=== PATIENT | female | born 1985 | race Caucasian/White ===

== ENCOUNTER 2023-10-27 19:56 | Emergency (ER) | payer OTHER, SELFPAY ==
[2023-10-27 20:04] VITALS: BP 144/88
--- NOTE | 2023-10-27 22:04 | ED.GENMED ---
History of Present Illness
General
Chief Complaint: Psychiatric Problem
Source: patient and family (mother)
Exam Limitations: none
Time Seen by Provider: 10/27/23 20:38
Nursing documentation reviewed up to this point in time: agreed with
Travel History
Have you had any contact with someone who has COVID-19?: No
Do you have any symptoms of coronavirus? Fever > 100 degrees, chills, cough, shortness of breath, sore throat, loss of taste or smell, muscle aches, or headache?: No
History of Present Illness
History of Present Illness:
38-year-old female with past medical history of bipolar 1 with schizoaffective disorder presents to the emergency room with flights of ideas�appears to be acutely manic and having delusions. She arrived via EMS�Per EMS she called them stating that
she wanted to be seen for a 'clean bill of health' but was having racing thoughts/flight of ideas on the way to the hospital. Patient tells me 'I just came here to be assessed' but cannot specifically tell me what she wished to have assessed. She
says 'it is my dream to me and oncologist, meeting a neurosurgeon is also another one of my dreams.' She repeatedly refers to going to the bathroom�'I only recently learned that the toilet was used for pooping, I am used to using a poop cup.' When
I asked her why she decided come to the hospital she says 'my friends recommended that I come in to be true to myself.' She denies any specific pain or shortness of breath or any other issues on review of systems. She does not seem to be suicidal
although she is frequently jumping from topic to topic. She tells me that she lives with her mother.
I called her mother on the phone and spoke to her at length to obtain some collateral history. She says that patient has a long history of mental health issues. She was not aware that patient was in the emergency room�she says that she stepped out
on the porch for 10 minutes and when she returned the patient was gone. She says that patient has been having escalating mental health issues over the past few days. She says that the patient has not slept in 48 hours. She says that she is
continually in and out of the bathroom running the water and drawing a bath for herself. Mother was concerned that maybe she was abusing laxatives because she has done this in the past. Mother reports that patient has had fixation on her health
over this period of time�she believes that these issues are triggered by the anniversary of patient's brother dying 12 years ago in September and the anniversary of patient's father dying 4 years ago in October. Apparently patient's aunt also recently had
a diagnosis of terminal lung cancer which seems to have contributed to change in her mental health. Patient has previously been seen at [facility] seen [facility] and [facility]. She currently takes Latuda 20 mg daily
and this is her only medication and has ostensibly been compliant according to mother.
Past History
Past History
ED Past Medical History: Psychiatric (Anxiety, bipolar disorder, schizoaffective disorder)
ED Past Surgical History: None
Social History
Tobacco: Non-smoker
Alcohol: None
Drug: None
Personal: Single
Living: with family
Employment: Not employed
Family History
Family History: Unable to obtain
Review of Systems
Review of Systems
All Other Systems: ROS reviewed and negative except as documented in HPI and ROS
Constitutional: Denies fever
Respiratory: Denies trouble breathing
Cardiac: Denies chest pain
ABD/GI: Denies abdominal pain or nausea
: Denies flank pain
Musculoskeletal: Denies neck pain or back pain
Neurological: Denies dizzy or headache
Psychiatric: Reports anxiety; Denies suicidal
Phy Exam
Physical Exam
Physical Exam:
General: Awake, alert, oriented x3; pressured speech and flight of ideas, occasional expression of delusional ideas; very poor insight
Head: Normocephalic, atraumatic
Eyes: Conjunctiva normal, EOMI, pupils equal round reactive to light bilaterally
Throat: Airway intact, handling secretions
Neck: Trachea midline, supple without meningismus
Lungs: Clear to auscultation bilaterally, no wheezing, rales, rhonchi
Heart: Regular rate and rhythm, no murmurs, gallops, or rubs
Abd: Soft, non distended, nontender
Neuro: Cranial nerves grossly intact, speech fluid, no motor or sensory deficits
Skin: no rash
Extremities: No edema in extremities, equal pulses in all extremities
Scores
Heart Failure Risk
Heart Failure Risk Score: Not Applicable
Heart Score for Chest Pain Patients
STEMI patient?: Not applicable
Withdrawal Assessment of Alcohol
Withdrawal Assessment Completed?: Not applicable
Course
Orders/Labs/Results
Orders:
Orders
10/27/23 20:11
Crisis Consult Urgent
Reason for Consult: wants to speak with someone for eval
10/27/23 22:03
Test Result ONCE
10/27/23 22:10
Acetaminophen Urgent
Alcohol Urgent
COVID-19 Antigen Urgent
Source: Nasal Swab
Complete Blood Count/With Diff Urgent
Comprehensive Metabolic Panel Urgent
HCG, Serum Qualitative Screen Urgent
Magnesium Urgent
Phos [Phosphorus] Urgent
Salicylate Urgent
10/27/23 22:22
Drug Screen, Urine [Urine Drug Abuse Screen] Urgent
Date Specimen was Collected: 10/27/23
Time Specimen was Collected: 22:21
Abnormal Lab Results
10/27/23
22:10
RBC 4.12 L 10^6/uL
(4.20-5.40)
MCH 31.3 H pg
(27.0-31.0)
Absolute Neuts (auto) 6.7 H 10^3/uL
(1.4-6.5)
Sodium 134 L mmol/L
(135-145)
Glucose 102 H mg/dl
(70-99)
Salicylates < 1.0 L mg/dl
(2.0-20.0)
Acetaminophen < 10 L ug/ml
(10-30)
10/27/23 22:10
10/27/23 22:10
Vital Signs
Initial and Last Documented VS:
Initial Vital Signs
Temp Pulse Resp BP Pulse Ox
36.8 C 81 16 144/88 99
10/27/23 20:04 10/27/23 20:04 10/27/23 20:04 10/27/23 20:04 10/27/23 20:04
Last Documented Vital Signs
Temp Pulse Resp BP Pulse Ox
36.8 C 81 16 144/88 99
10/27/23 20:04 10/27/23 20:04 10/27/23 20:04 10/27/23 20:04 10/27/23 20:04
MDM/Problems Addressed
Differential Diagnosis Includes:
Latrice, psychosis, drug/alcohol intoxication
MDM/Problems Addressed:
38-year-old female presents to the emergency room for assessment�appears to be acutely manic. She is having flights of ideas and is very erratic. Mother says that this has been escalating over the past few days, patient has not been sleeping. She
has a history of these neuropsychiatric issues per mother. Her vital signs are normal and her exam is benign. She does not offer any specific complaints. Will check basic medical screening labs�there was a question of perhaps overuse of laxatives
will need to check electrolytes. Will send CBC, CMP, Tylenol and salicylate levels, UDS, alcohol level. Check hCG. Will discuss with crisis for assessment. At this point patient is exhibiting very poor judgment and insight and does not appear
capable of caring for herself�I did discuss this with the mother and she tends to agree patient would benefit from inpatient psychiatric treatment once medically cleared.
Labs reviewed: CBC and CMP unremarkable, Tylenol and salicylate levels negative, alcohol level negative, UDS clean. Exam unchanged. At this point patient cleared from a medical perspective for psychiatric treatment�crisis performed an assessment
plan to file [address] treatment[address] Will monitor pending telepsych assessment and inpatient placement.
Chronic conditions affecting care:
Bipolar disorder with schizoaffective disorder
*Pulse Oximetry
Patient hypoxic: no
*Critical Care Note
Total Time (30-74mins, 75-104mins- exclusive of procedures): Not Applicable
Data Reviewed
Source: patient, family (Mother) and ambulance crew
Patient Management
Discussion with other providers: Other (Discussed with crisis staff)
Escalation/DeEscalation of care consider admission/obs:
Inpatient psychiatric treatment
ED Attending Note
-
Portions of this chart may have been created with voice recognition software.� Occasional wrong word or��sound alike� substitutions may have occurred due to the inherent limitations of voice recognition software.
Discharge Plan
Departure
Patient Disposition: Psych Facility
Date of Disposition: 10/27/23
Time of Disposition: 23:04
Discharge Problem:
Latrice, Delusions
Prescriptions:
No Action
multivitamin with folic acid [Tab-A-Tayo] 1 TABLET tablet
1 tab PO DAILY
aripiprazole [Abilify] 20 MG tablet
20 mg PO DAILY
Patient Comments:
NONE X 2 DAYS
lurasidone [Latuda] 80 MG tablet
80 mg PO DAILY
vitamin A 10,000 UNIT capsule
25,000 unit PO DAILY
Interventions
Interventions:
*Risk Screen - Suicide Last Done: 10/27/23 20:04
*General Assessment Last Done: 10/27/23 20:04
*Neglect/Abuse Screening Last Done: 10/27/23 20:04
ED-Psychological Assessment Last Done: 10/27/23 22:23
Discharge Date and Time
Print Language: FILIPINO
[2023-10-27 22:26] LABS: % Basophils 0.7 % (0-2); % Eosinophils 0.7 % (0-6); % Immature Granulocytes 0.2 % (0-0.5); % Lymphocytes 27.1 % (20.5-51.1); % Monocytes 5.4 % (1.7-9.3); % Neutrophils 65.9 % (42.2-75.2); Absolute Basophils 0.1 10^3/uL (0-0.2); Absolute Eosinophils 0.1 10^3/uL (0-0.7); Absolute Lymphocytes 2.7 10^3/uL (1.2-3.4); Absolute Monocytes 0.5 10^3/uL (0.1-0.6); Absolute Neutrophils 6.7 10^3/uL (1.4-6.5); Hematocrit 37.9 % (37.0-47.0); Hemoglobin 12.9 g/dL (12.0-16.0); Mean Corpuscular Hgb 31.3 pg (27.0-31.0); Mean Platelet Volume 9.3 fL (7.4-10.4); Nucleated Red Blood Cells % 0 %; Platelet Count 326 10^3/uL (130-400); Red Blood Cell Count 4.12 10^6/uL (4.20-5.40); Red Cell Dist. Width 12.2 % (11.5-14.5); White Blood Cell Count 10.1 10^3/uL (4.8-10.8)
[2023-10-27 22:39] LABS: COVID-19 Antigen Negative (Negative)
[2023-10-27 22:41] LABS: HCG, Serum Qualitative Screen Negative
[2023-10-27 22:43] LABS: Amphetamines Negative (Negative); Barbiturates Negative (Negative); Benzodiazepines Negative (Negative); Buprenorphine Negative (Negative); Cocaine Negative (Negative); Methadone Negative (Negative); Methamphetamines Negative (Negative); Opiates Negative (Negative)
[2023-10-27 22:44] LABS: Marijuana Negative (Negative); Phencyclidine Negative (Negative); Tricyclic Antidepressants Negative (Negative)
[2023-10-27 22:44] LABS: ALT (SGPT) 25 U/L (0-35); AST (SGOT) 34 U/L (14-36); Acetaminophen < 10 ug/ml (10-30); Alkaline Phosphatase 42 U/L (38-126); Blood Urea Nitrogen 11 mg/dl (7-17); Calcium 9.9 mg/dl (8.4-10.2); Carbon Dioxide 25 mmol/L (22-30); Chloride 102 mmol/L (98-107); Glucose 102 mg/dl (70-99); Magnesium 2.1 mg/dl (1.6-2.3); Phosphorus 4.5 mg/dl (2.5-4.5); Potassium 3.6 mmol/L (3.5-5.1); Salicylate < 1.0 mg/dl (2.0-20.0); Sodium 134 mmol/L (135-145); Total Bilirubin 0.6 mg/dl (0.2-1.3); Total Protein 7.7 g/dl (6.3-8.2); eGFR > 60.00
[2023-10-27 22:46] LABS: Alcohol None Detected
--- NOTE | 2023-10-28 11:24 | ED.CRISIS ---
ED Crisis Note
ED Crisis Note
Subjective:
Patient on a 302 committal. Awaiting placement at 303 hearing.
Objective:
No acute medical complaints. Rambled speech. Poor sleep. No respiratory distress. Nonfocal.. Denies suicidal thoughts.
Assessment/Plan:
Awaiting 303 hearing. Consult for psychiatry.
--- NOTE | 2023-10-28 13:40 | CON.MD ---
Consultation - Medical
-
patient seen chart reviewed. patient is a 38 year old w hx of mood disorder /psychosis. she comes to [facility] and home of a 302 petition filed by [employer]. the 302 alleges bizarre behavior such as defecating in the bathtub. without my asking the patient
told me the following:' i have germs in me...and try to use the bathtub in my home....I'vee been going where i want...the bathtub ot standing up.' she also told me she had defecated something 'alive...a fetus'. 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 she said she scrawled the cure for aids on a building near [place] but someone wrote over it. ' the patient does not deny having a psychiatric hx and asked if i could get her some adderall. she also admitted she had been
taking latuda 20 mg daily and that she was microdosing zyprexa. the patient says she receives psych care at [facility].
past psych hx patient has hx of many psychiatric admission and prior 302 commitments. [facility] lamberto richards she is followed at [facility].
medical hx patient states no serious ongoing medical problems. she takes 'vitamins'
fh there is a fh of psych illness. she did not elaborate
substance abuse denied
social hx resides w mother. 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
mse alert ox 3 pressured speech with tangentiality and circumstantiality grandiose expansive mood. delusional affect c/w mood denies si hi aver intelligence insight judgment poor
dx schizoaffective disorder
plan uphold 302 accepting of latuda which i will start 4 0 mg daily suggested prn ativan which patient said she likely does not want but will order in case. mutivit at pt request. 303 hearing tomorrow.
[2023-10-28] MEDS: LATUDA PO (18:12)
--- NOTE | 2023-10-28 18:12 | EDRN ---
Patient refusing to take to her Lantuda. Patient stated 'I am thriving well and don't need to take. All I want is a vitamin with copper in it. I love Lantuda but I am not taking it today. I might take in a week. Thank you for the offer.'
[2023-10-29] MEDS: THERAGRAN 1 TABLET PO (09:59)
--- NOTE | 2023-10-29 10:45 | W.PN.UPDATE ---
Update Note
Progress Note Update
patient remains floridly manic and psychotic. she spoke nonstop during the hearing in a very disorganized manner usually not germane to what was being discussed. that is not to say she was aggressive as she was not but a give and take conversation
was not possible. she was committed under section 303 (after a very prolonged hearing in which she frequently disrupted the proceedings) for up to 15 days in patient treatment. have ordered tsh and free t4. she does have what appears to be
exophthalmos ?hyperthyroid a psychiatric hospital will be sought for her.
[2023-10-29 11:43] LABS: Free T4 1.46 ng/dl (0.78-2.19)
[2023-10-29 11:57] LABS: TSH Reflex To Free T4 1.45 uIU/ml (0.47-4.68)
[2023-10-29 16:25] VITALS: BP 121/96
[2023-10-29] MEDS: LATUDA 40 MG PO (18:45)
== END 2023-10-29 19:07 ==
LOC: EMR 19:56
PROVIDERS: CONSULT PHYSICIAN Psychiatry & Neurology Psychiatry; EMERGENCY PHYSICIAN Emergency Medicine
DX: F25.9 Schizoaffective disorder, unspecified (principal); F41.9 Anxiety disorder, unspecified; F31.9 Bipolar disorder, unspecified
CPT/HCPCS: 99285; 80053; 80143; 80179; 80306; 82077; 83735; 84100; 84439; 84443; 84703; 85025; 87811

== ENCOUNTER 2024-01-21 11:07 | Emergency (ER) | payer OTHER, SELFPAY ==
[2024-01-21 11:12] VITALS: BP 136/93
--- NOTE | 2024-01-21 11:24 | ED.GENMED ---
History of Present Illness
General
Chief Complaint: Crisis Evaluation
Time Seen by Provider: 01/21/24 11:24
History of Present Illness
History of Present Illness:
HPI: The patient is seen as a crisis patient. The patient apparently was brought in by [place] police he noted erratic conversation on scene at home. The patient has tangential thoughts and provides no means history. 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 She vaguely describes some concerns for anemia as well. She takes Latuda for bipolar. She also describes abnormal genital hygiene and talked about her more recent trouble having orgasms
with intercourse.
EXAM:
GENERAL: Well appearing in no distress
HEENT: Moist oral mucosa
CARDIOVASCULAR: No murmurs, normal heart rate, regular rhythm, No chest wall tenderness
PULMONARY: No respiratory distress, breath sounds are clear and equal
ABDOMEN: Soft with no peritoneal signs, no tenderness
NEUROLOGIC: Excellent strength all extremities, no coordination deficits
PSYCHIATRIC: Tangential and disorganized thoughts, lacks organization, talks nonstop, lacks insight and judgment, she is awake and talking
EXTREMITIES: Nontender, no edema, moves all extremities equally
SKIN: No rash, no lesions
TIME OF INITIAL ENCOUNTER: 11:30 AM
NUMBER AND COMPLEXITY OF PROBLEMS ADDRESSED AT THE ENCOUNTER
� Chronic conditions affecting care: Anxiety, bipolar disorder
� Acute Exacerbation and/or Progression of Chronic Illness:
� Differential Diagnosis includes:
AMOUNT AND/OR COMPLEXITY OF DATA TO BE REVIEWED AND ANALYZED
� I performed an independent evaluation of and my interpretation is:
EKG:
CT:
X-rays:
Laboratory Studies:
Other:
� Review of other/old records: I reviewed records. The patient has a history of bipolar and schizoaffective disorder. She apparently was transferred to [facility] this past October.
� Clinical information was obtained by an independent historian: Crisis
� Prescriptions/Medications Considered but not given:
� Further testing considered but not performed:
RISK OF COMPLICATIONS AND/OR MORBIDITY OR MORTALITY OF PATIENT MANAGEMENT
� Social determinants of health affecting care:
� Discussion with other providers: I discussed case with crisis at 12:50 PM and patient will be having will be seen by Dr. Granado
� Escalation of care including admission/observation vs risk of discharge considered: The patient is clearly manic. She has history of bipolar/schizoaffective disorder.
Past History
Past History
ED Past Medical History: Psychiatric (Anxiety, bipolar disorder, schizoaffective disorder)
ED Past Surgical History: None
Social History
Tobacco: Non-smoker
Alcohol: None
Drug: None
Personal: Single
Living: with family
Employment: Not employed
Family History
Family History: Unable to obtain
Phy Exam
Physical Exam
Physical Exam:
See HPI
Course
Orders/Labs/Results
Orders:
Orders
01/21/24 11:25
Test Result ONCE
01/21/24 13:22
Alcohol Urgent
Basic Metabolic Panel Urgent
HCG, Serum Qualitative Screen Urgent
Magnesium Urgent
01/21/24 13:23
Complete Blood Count/With Diff Urgent
01/21/24 14:03
Lorazepam [Ativan] 1 mg PO Q6HPRN PRN
01/21/24 16:21
Drug Screen, Urine [Urine Drug Abuse Screen] Urgent
Date Specimen was Collected: 01/21/24
Time Specimen was Collected: 16:20
01/21/24 18:00
Lurasidone HCl [Latuda] 40 mg PO QPM
01/21/24 23:03
Haloperidol Lactate [Haldol] 5 mg .ROUTE .STK-MED ONE
Haloperidol Lactate [Haldol] 5 mg IM NOW STA
Lorazepam [Ativan] 1 mg IM NOW STA
Lorazepam [Ativan] 2 mg .ROUTE .STK-MED ONE
Abnormal Lab Results
01/21/24 01/21/24
13:22 13:23
MCH 31.3 H pg
(27.0-31.0)
Absolute Neuts (auto) 7.9 H 10^3/uL
(1.4-6.5)
Neutrophils % 82.5 H %
(42.2-75.2)
Lymphocytes % 12.6 L %
(20.5-51.1)
Glucose 110 H mg/dl
(70-99)
01/21/24 13:23
01/21/24 13:22
Vital Signs
Initial and Last Documented VS:
Initial Vital Signs
Temp Pulse Resp BP Pulse Ox
97.9 F 95 18 136/93 100
01/21/24 11:12 01/21/24 11:12 01/21/24 11:12 01/21/24 11:12 01/21/24 11:12
Last Documented Vital Signs
Temp Pulse Resp BP Pulse Ox
97.9 F 88 16 124/66 99
01/21/24 11:12 01/21/24 20:22 01/21/24 20:22 01/21/24 20:22 01/21/24 20:22
*Critical Care Note
Total Time (30-74mins, 75-104mins- exclusive of procedures): Not Applicable
ED Attending Note
-
Portions of this chart may have been created with voice recognition software.� Occasional wrong word or��sound alike� substitutions may have occurred due to the inherent limitations of voice recognition software.
Discharge Plan
Departure
Patient Disposition: Psych Facility
Date of Disposition: 01/21/24
Time of Disposition: 14:00
Discharge Problem:
Psychosis
Prescriptions:
No Action
multivitamin with folic acid [Tab-A-Tayo] 1 TABLET tablet
1 tab PO DAILY
aripiprazole [Abilify] 20 MG tablet
20 mg PO DAILY
Patient Comments:
NONE X 2 DAYS
lurasidone [Latuda] 80 MG tablet
80 mg PO DAILY
vitamin A 10,000 UNIT capsule
25,000 unit PO DAILY
Referrals:
UNKNOWN - PT NOT,INTERVIEWE [Family Provider] -
Interventions
Interventions:
*Risk Screen - Suicide Last Done: 01/21/24 11:09
*General Assessment Last Done: 01/21/24 11:09
*Neglect/Abuse Screening Last Done: 01/21/24 11:09
ED- Fall Risk Assessment Last Done: 01/21/24 18:42
*Nursing Disposition Last Done: 01/21/24 23:13
ED-Psychological Assessment Last Done: 01/21/24 11:53
Discharge Date and Time
Discharge Date/Time: 01/21/24 23:14
Print Language: BARBADIAN
[2024-01-21 13:46] LABS: % Basophils 0.6 % (0-2); % Eosinophils 0.1 % (0-6); % Immature Granulocytes 0.4 % (0-0.5); % Lymphocytes 12.6 % (20.5-51.1); % Monocytes 3.8 % (1.7-9.3); % Neutrophils 82.5 % (42.2-75.2); Absolute Basophils 0.1 10^3/uL (0-0.2); Absolute Lymphocytes 1.2 10^3/uL (1.2-3.4); Absolute Monocytes 0.4 10^3/uL (0.1-0.6); Absolute Neutrophils 7.9 10^3/uL (1.4-6.5); Mean Corp Hgb Conc. 34.1 g/dL (33.0-37.0); Mean Corpuscular Hgb 31.3 pg (27.0-31.0); Mean Corpuscular Volume 91.5 fL (81.0-99.0); Mean Platelet Volume 9.3 fL (7.4-10.4); Nucleated Red Blood Cells % 0 %; Platelet Count 336 10^3/uL (130-400); Red Blood Cell Count 4.48 10^6/uL (4.20-5.40); Red Cell Dist. Width 11.9 % (11.5-14.5); White Blood Cell Count 9.5 10^3/uL (4.8-10.8)
[2024-01-21 13:54] LABS: HCG, Serum Qualitative Screen Negative
[2024-01-21 13:58] LABS: Blood Urea Nitrogen 12 mg/dl (7-17); Carbon Dioxide 26 mmol/L (22-30); Chloride 104 mmol/L (98-107); Glucose 110 mg/dl (70-99); Magnesium 1.9 mg/dl (1.6-2.3); Potassium 4.2 mmol/L (3.5-5.1); Sodium 138 mmol/L (135-145); eGFR > 60.00
[2024-01-21 14:01] LABS: Alcohol None Detected
--- NOTE | 2024-01-21 14:04 | CON.MD ---
Consultation - Medical
-
patient seen chart reviewed. patient is well known to me from prior admission. she was seen by this creative services writer in october of 2023 on a 302 petition which was upheld given psychosis. she was then 303 committed and referred for psych hospitalization. the
patient typically stops taking antipsychotic medication and becomes floridly manic w psychosis. she reports she was taking 40 mg latuda bc more made her nauseated. she was brought to today on a 302 commitment filed by the police who have been
called to the house numerous times recently as well as her mother with whom she lives. the commitment alleges grandiose delusions, confrontations w police and mother, agitation, paranoia and delusions of infestation , weight loss, lack of
nutrition, leaving home wearing nude briefs only, saying things like she is not afraid of policemen's guns. she has also alleged to have been driving recklessly. the patient is a very poor historian. 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 it is difficult to get a word in to even ask a question. she denies all manner of psych symptomatology just continues to ramble on about her extensive curriculum vitae.
past psych hx patient has hx of numerous psych admissions and 302 commitments. she typically reduces dosage or stops meds all together and relapses. she used to be followed at [facility].
medical hx patient denies serious medical issues. she did tell me she takes a combination of beets potatoes and one and one half gallons of water daily to cleanse herself of parasites
fh there is fh of psych details not known
substance abuse denied
social resides w mom brother 12 years ago dad two years ago. mom is physically ill
mse alert and o x 3 pressured speech disorganized tangential and circumstantial grandiose expansive mood delusional denies si hi aver intellgence insight judgment lacking
dx schizoaffective disorder vs bipolar manic w psychotic fx
plan uphold 302 latuda will start w 40 mg as that is what she is willing to take but likely will need more. prn ativan consideration should be given to [facility] for rx of psychosis given failure to comply. crisis will begin to search for a
psychiatric in pt bed for gissell.
[2024-01-21 16:42] LABS: Amphetamines Negative (Negative); Barbiturates Negative (Negative); Benzodiazepines Negative (Negative); Buprenorphine Negative (Negative); Cocaine Negative (Negative); Marijuana Negative (Negative); Methadone Negative (Negative); Methamphetamines Negative (Negative); Opiates Negative (Negative); Phencyclidine Negative (Negative); Tricyclic Antidepressants Negative (Negative)
[2024-01-21 20:22] VITALS: BP 124/66
--- NOTE | 2024-01-21 23:04 | ED.CRISIS ---
ED Crisis Note
ED Crisis Note
Subjective:
pt refuses t/p
Objective:
awake and alert. delusional.
Assessment/Plan:
Patient became aggressive upon attempted transport. Will sedate. She is clearly delusional. Otherwise airway is intact and stable
== END 2024-01-21 23:14 ==
LOC: EMR 11:07
PROVIDERS: EMERGENCY PHYSICIAN Emergency Medicine; OTHER PHYSICIAN Psychiatry & Neurology Psychiatry
DX: F25.9 Schizoaffective disorder, unspecified (principal); F31.9 Bipolar disorder, unspecified
CPT/HCPCS: 99285; 80048; 80306; 82077; 83735; 84703; 85025

== ENCOUNTER 2025-01-28 22:09 | Emergency (ER) | payer OTHER, SELFPAY ==
[2025-01-28 22:25] VITALS: BMI 20.2
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
[2025-01-28] MEDS: ZYPREXA 10 MG IM (23:10)
[2025-01-29 05:28] VITALS: BP 130/85
[2025-01-29 06:02] LABS: Hematocrit 39.3 % (37.0-47.0); Hemoglobin 13.5 g/dL (12.0-16.0); Mean Corp Hgb Conc. 34.4 g/dL (33.0-37.0); Mean Corpuscular Volume 91.2 fL (81.0-99.0); Nucleated Red Blood Cells % 0 %; Platelet Count 299 10^3/uL (130-400); Red Cell Dist. Width 11.9 % (11.5-14.5)
[2025-01-29 06:09] LABS: HCG, Serum Qualitative Screen Negative
[2025-01-29 06:27] LABS: ALT (SGPT) 17 U/L (0-35); AST (SGOT) 22 U/L (14-36); Albumin 4.3 g/dl (3.5-5.0); Alkaline Phosphatase 31 U/L (38-126); Blood Urea Nitrogen 13 mg/dl (7-17); Calcium 9.4 mg/dl (8.4-10.2); Carbon Dioxide 22 mmol/L (22-30); Chloride 108 mmol/L (98-107); Estimated Creatinine Clearance 85 ml/min; Glucose 97 mg/dl (70-99); Potassium 3.6 mmol/L (3.5-5.1); Sodium 138 mmol/L (135-145); Total Protein 6.8 g/dl (6.3-8.2); eGFR > 60.00
[2025-01-29 09:30] VITALS: BP 119/75
== END 2025-01-29 09:46 ==
LOC: EMR 22:09
PROVIDERS: EMERGENCY PHYSICIAN Emergency Medicine
DX: F25.0 Schizoaffective disorder, bipolar type (principal); F41.9 Anxiety disorder, unspecified; Z91.148 Patient's other noncompliance with medication regimen for other reason
CPT/HCPCS: 99285; 80053; 82077; 84703; 85025; J2358

== ENCOUNTER 2025-02-26 17:01 | Emergency (ER) | payer OTHER, SELFPAY ==
[2025-02-26] MEDS: ZYPREXA 10 MG IM (17:16)
[2025-02-26 17:20] VITALS: BP 114/76
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
[2025-02-26 18:10] VITALS: BP 115/75
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
[2025-02-26 18:59] LABS: Hematocrit 35.1 % (37.0-47.0); Hemoglobin 12.2 g/dL (12.0-16.0); Mean Corp Hgb Conc. 34.8 g/dL (33.0-37.0); Mean Corpuscular Volume 90.9 fL (81.0-99.0); Nucleated Red Blood Cells % 0 %; Platelet Count 311 10^3/uL (130-400); Red Cell Dist. Width 12.2 % (11.5-14.5)
[2025-02-26 19:09] LABS: HCG, Serum Qualitative Screen Negative
[2025-02-26 19:17] LABS: Blood Urea Nitrogen 14 mg/dl (7-17); Calcium 9.1 mg/dl (8.4-10.2); Carbon Dioxide 25 mmol/L (22-30); Chloride 106 mmol/L (98-107); Glucose 101 mg/dl (70-99); Potassium 4.1 mmol/L (3.5-5.1); Sodium 136 mmol/L (135-145); eGFR > 60.00
[2025-02-26 19:34] VITALS: BP 111/74
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
[2025-02-26 21:40] VITALS: BP 102/60
--- NOTE | 2025-02-26 23:00 | EDRN ---
Report received, patient is sleeping at this time, safe environment maintained, 1:1 continued.
--- NOTE | 2025-02-27 | EDRN ---
patient remains asleep will continue to monitor
--- NOTE | 2025-02-27 01:40 | EDRN ---
transport here, patient cooperative with leaving
== END 2025-02-27 01:53 ==
LOC: EMR 17:01
PROVIDERS: EMERGENCY PHYSICIAN Emergency Medicine
DX: F23 Brief psychotic disorder (principal); R45.850 Homicidal ideations; R45.1 Restlessness and agitation; F41.9 Anxiety disorder, unspecified; F25.0 Schizoaffective disorder, bipolar type; Z91.148 Patient's other noncompliance with medication regimen for other reason; Z78.1 Physical restraint status
CPT/HCPCS: 99285; 96372; 80048; 84703; 85025; J2358